=== PATIENT | male | born 1980 | race Two or more races ===

== ENCOUNTER 2016-10-28 23:30 | Emergency (ER) | payer MEDICAID ==
[~2016-10-28] VITALS: Ht 200.7 cm; Wt 113.4 kg
[2016-10-28] MEDS ORDERED: SODIUM CHLORIDE 0.9% 1,000 ML IVB ONE (23:44)
[2016-10-28 23:53] LABS: Urine RBC None Seen /hpf (0 - 3)
[2016-10-28 23:58] LABS: Basophils # (auto) 0.1 uL; Basophils % (auto) 1.1 % (0.0-2.0); Eosinophils # (auto) 0.1 uL; Eosinophils % (auto) 0.8 % (0.0-7.0); Hematocrit 51.9 % (41.0-53.0); Hemoglobin 17.1 g/dL (13.5-17.5); Lymphocytes # (auto) 4.4 uL; Mean Corpuscular Hgb Conc. 32.8 g/dL (32.0-36.0); Mean Corpuscular Volume 91.2 fL (80.0-100.0); Mean Platelet Volume 9.4 fL (7.4-10.4); Monocytes # (auto) 0.9 uL; Monocytes % (auto) 6.9 % (0.0-12.0); Neutrophils % (auto) 58.2 % (37.0-80.0); Platelet Count (auto) 261 10^3/uL (140-450); Red Cell Distribution Width 12.5 % (11.6-16.0); White Blood Cell 13.5 10^3/uL (4.4-10.8)
[2016-10-29 00:18] LABS: Albumin 4.5 g/dL (3.4-5.0); Anion Gap 27 (5-15); Carbon Dioxide 10 mmol/L (21-32); Chloride 106 mmol/L (98-107); GFR African American 61 mL/min; GFR Non-African American 50 mL/min; Glucose 138 mg/dL (74-106); Sodium 143 mmol/L (136-145)
[2016-10-29 00:21] LABS: Alkaline Phosphatase 103 U/L (45-117); BUN/Creatinine Ratio 10.2; Bilirubin, Total 0.2 mg/dL (0.2-1.0); Blood Urea Nitrogen 17 mg/dL (7-18); Potassium 4.1 mmol/L (3.5-5.1); Total Protein 8.8 g/dL (6.4-8.2)
[2016-10-29 00:22] LABS: Aspartate Aminotransferase 23 U/L (15-37)
[2016-10-29 00:23] LABS: Urine Bilirubin Negative (Negative); Urine Blood Negative /uL (Negative); Urine Color Yellow (Yellow); Urine Glucose Normal (Normal); Urine Hyaline Cast FEW /lpf (0 - 2); Urine Ketone Negative (Negative); Urine Mucus FEW (None Seen); Urine Nitrite Negative (Negative); Urine Sperm PRESENT /hpf (None Seen); Urine Urobilinogen Normal (Negative)
[2016-10-29] MEDS ORDERED: SODIUM CHLORIDE 0.9% 2,000 ML IV ONE (01:00)
[2016-10-29 02:20] VITALS: BP 124/77
== END 2016-10-29 02:30 ==
LOC: EDBD 23:30 → ER 23:30
DX: G92 Toxic encephalopathy (principal); F16.929 Hallucinogen use, unspecified with intoxication, unspecified; F16.10 Hallucinogen abuse, uncomplicated
CPT/HCPCS: 36415; 51702; 70450; 72125; 80053; 80307; 80320; 81001; 82550; 85025; 93005; 94761; 96360; 96361; 99285; J7030